=== PATIENT | male | born 1975 | race Caucasian/White ===

== ENCOUNTER 2023-02-24 15:25 | Outpatient (CLI) | payer OTHER, SELFPAY | END 2023-02-24 15:26 | disposition home or self-care (01) | LOC: LKVREF 15:25 | PROVIDERS: PCP Emergency Medicine; Visit Provider Emergency Medicine | DX: Z00.00 Encounter for general adult medical examination without abnormal findings (principal); R55 Syncope and collapse | CPT/HCPCS: 80048 ==

== ENCOUNTER 2023-03-24 09:13 | Outpatient (CLI) | payer OTHER, SELFPAY ==
--- NOTE | 2023-03-24 11:03 | W.ANESCHARGE ---
Anesthesia Charges Start Date/Time Anesthesia Start Date: 03/24/23 Anesthesia Start Time: 10:25 Stop Date/Time Anesthesia Stop Date: 03/24/23 Anesthesia Stop Time: 11:02
== END 2023-03-24 09:14 | disposition home or self-care (01) ==
LOC: OP CLINIC 09:14
PROVIDERS: PCP Emergency Medicine; Visit Provider Surgery
DX: Z12.11 Encounter for screening for malignant neoplasm of colon (principal); K63.5 Polyp of colon
CPT/HCPCS: 00811; 45385; 88305; J2704